=== PATIENT | female | born 1960 | race American Indian/Alaskan Native ===

== ENCOUNTER 2020-09-01 08:21 | Day surgery (SDC) | payer OTHER ==
--- NOTE | 2020-09-01 11:52 | Anesthesia Day of Surgery ---
Anesthesia Day of Surgery - Day of Surgery Patient Examined: Yes Patient H&P Reviewed: Yes Patient is NPO: Yes
--- NOTE | 2020-09-01 11:52 | Anesthesia Consultation ---
Anesthesia Consult and Med Hx Date of service: 09/01/20 - Airway Anesthetic Teeth Evaluation: Edentulous (two teeth on the bottom) ROM Head & Neck: Adequate Mental/Hyoid Distance: Adequate Mallampati Class: Class II Intubation Access Assessment: Probably Good - Pre-Operative Health Status ASA Pre-Surgery Classification: ASA3 - Pulmonary Hx Smoking: Yes Hx Asthma: No Hx Sleep Apnea: No - Cardiovascular System Hx Hypertension: Yes - Central Nervous System Hx Psychiatric Problems: No - Endocrine Hx Renal Disease: Yes Hx End Stage Renal Disease: Yes (M-F) - Other Systems Hx Cancer: No
[2020-09-01] MEDS ORDERED: LIDOCAINE MPF (2%) 20 MG/1 ML VIAL 5 ML ONE (12:32)
[2020-09-01] MEDS ORDERED: ONDANSETRON 4 MG/2 ML INJ ONE (12:32)
[2020-09-01] MEDS ORDERED: propofoL 200 MG/20 ML VIAL IV ONE (12:32)
--- NOTE | 2020-09-01 12:59 | Short Stay Summary ---
Short Stay Documentation Date of service: 09/01/20 Narrative H&P: The patient presents for surveillance colonoscopy for a history of adenomatous polyps. Her last study was 5 years ago. - History Past Medical History: ESRD, hypertension, hyperlipidemia Past Surgical History: Other (AV fistula) Social history: no significant social history - Allergies and Medications Current Medications: Allergies No Known Allergies Allergy (Verified 09/29/15 12:21) Home Medications Medication Instructions Recorded Confirmed Last Taken Type amLODIPine [Norvasc] 5 mg PO DAILY 10/01/15 10/01/15 09/30/15 10:00 History Folic Acid/Vit B Complex and C 09/01/20 08/31/20 History [Dialyvite 800 Chewable Wafer] - Physical exam General appearance: no acute distress, well-nourished Integumentary: no rash, no growths, no abnormal pigmentation HEENT: Atraumatic, PERRLA, EOMI, Mucous membr. moist/pink Lungs: Clear to auscultation Breasts: deferred Heart: Regular rate, Normal S1, Normal S2, No murmurs Gastrointestinal: normoactive bowel sounds, no tenderness, no distended, no masses, no guarding, no organomegaly, no obese Female Genitourinary: deferred Rectal Exam: normal exam-external/orifice, normal rectal tone, no mass Extremities: no ischemia, pulses intact, pulses symmetrical (Functioning AV shut in RUE), No edema, normal temperature, normal color Neurological: Normal gait, Normal speech, Strength at 5/5 X4 ext, Normal tone, Sensation intact, Cranial nerves 3-12 NL - Brief post op/procedure progress note Date of procedure: 09/01/20 Findings: see dictation Estimated blood loss: none Pathology: list (3 ascending polyps and 1 transverse colon polyp) Specimen disposition: to lab Condition: stable - Disposition Condition at discharge: Good Disposition: DC-01 TO HOME OR SELFCARE - Discharge Diagnoses (1) History of colon polyps Status: Acute (2) ESRD (end stage renal disease) on dialysis Status: Acute Short Stay Discharge Plan Activity: other (no driving for 24 hours) Weight Bearing Status: Full Weight Bearing Diet: renal Follow up with: SHELIA AVILA MD [Other] - 7 Days
--- NOTE | 2020-09-01 13:02 | Operative Report ---
Operative Report Operative Report: Date of procedure: 09/01/2020 Preprocedure diagnosis: History of colon polyps. Last study 5 years ago. Post procedure diagnosis: 3 small ascending colon polyps in 1 transverse polyp. Mild left colon diverticulosis. Procedure: Colonoscopy to the cecum with cold snare polypectomy x4. Endoscopist: Dr. Velasquez Anesthesia: Monitored anesthesia care per anesthesia department Estimated blood loss: 0 Medications: Monitored anesthesia care. See separate report by anesthesia for details. After careful discussion of the nature and purpose of the procedure as well as details of the technique risks benefits and alternatives the patient gave consent. Please see recent history and physical from the office. The patient was placed in the left lateral decubitus position and medicated per anesthesia. A rectal exam was performed sphincter tone was normal there were no masses palpable. The [employer] 570 scope was passed transanally and advanced under continuous direct vision without difficulty to the cecum. The colon was well prepared. The cecum was normal. There were 3 polyps in the ascending colon ranging in size from 5 mm to 8 mm. Polyps were sessile or semi-sessile. All 3 polyps were removed with cold snare resection and retrieved by suction. The transverse colon revealed a 5 mm sessile polyp. The polyp was removed with cold snare resection and retrieved by suction. Scattered diverticula were present in the sigmoid colon and descending colon. The rectum was normal on forward and retroflexed views. The procedure was well-tolerated overall and the patient was observed in recovery. Conclusions: 3 small polyps in the ascending colon and one small polyp in the descending colon. Mild left colon diverticulosis.. Plan: Await pathology report. Repeat colonoscopy in 3 years if more than 2 are adenomas. Signed electronically: [place] Velasquez M.D.
[2020-09-01 13:44] VITALS: BP 121/68
== END 2020-09-01 14:05 | disposition home or self-care (01) ==
LOC: GIO 08:21
PROVIDERS: ATTEND Internal Medicine Gastroenterology
DX: Z12.11 Encounter for screening for malignant neoplasm of colon (principal); D12.2 Benign neoplasm of ascending colon; D12.3 Benign neoplasm of transverse colon; K57.30 Diverticulosis of large intestine without perforation or abscess without bleeding; I12.0 Hypertensive chronic kidney disease with stage 5 chronic kidney disease or end stage renal disease; N18.6 End stage renal disease; Z99.2 Dependence on renal dialysis; Z86.010 Personal history of colon polyps; Z87.891 Personal history of nicotine dependence; Z79.899 Other long term (current) drug therapy; Z98.890 Other specified postprocedural states
CPT/HCPCS: 45385; 88305; J2405; J2704